=== PATIENT | female | born 2000 | race Caucasian/White ===

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

== ENCOUNTER 2022-07-06 10:56 | Emergency (ER) | payer SELFPAY | END 2022-07-06 12:20 | disposition home or self-care (01) | LOC: FB.ED 10:56 | DX: N85.8 Other specified noninflammatory disorders of uterus (principal); K59.00 Constipation, unspecified; Z79.899 Other long term (current) drug therapy | CPT/HCPCS: 99283 ==